=== PATIENT | male | born 1990 | race Caucasian/White ===

== ENCOUNTER 2016-04-24 06:50 | Emergency (ER) | payer OTHER, MEDICAID ==
[2016-04-24 07:39] LABS: HEMATOCRIT 37 % (39-53); MEAN CORPUSCULAR HGB CONC 37.4 gm/dl (32.0-36.0); MEAN CORPUSCULAR VOLUME 87 fL (80-100)
[2016-04-24 07:46] LABS: ALBUMIN 3.5 gm/dl (3.4-5.0); CALCIUM 8.6 mg/dl (8.5-10.1)
[2016-04-24 07:56] LABS: BASOPHILS % (MANUAL) 0 % (0-3); EOSINOPHILS % (MANUAL) 0 % (0-9); LYMPHOCYTES % (MANUAL) 9 % (10-50); NORMAL RBCS PRESENT
[2016-04-24 08:10] LABS: APPEARANCE,URINE Slightly Cloudy; BILIRUBIN,URINE 2+ (NEGATIVE); COLOR,URINE Dark yellow; GLUCOSE, URINE (UA) NEGATIVE (NEGATIVE); KETONES,URINE 3+ (NEGATIVE); LEUKOCYTE ESTERASE ,URINE NEGATIVE (NEGATIVE); NITRATE,URINE NEGATIVE (NEGATIVE); OCCULT BLOOD,URINE 2+ (NEG-TRACE); PH,URINE 5.5
[2016-04-24 08:29] VITALS: PULSE 107
[2016-04-24 08:38] LABS: ICTOTEST,URINE NEGATIVE (NEGATIVE); RBC,URINE 0-2 (0-3AV/HPF)
[2016-04-24 09:06] VITALS: BP 106/70; RESP 23; TEMP 99.8; O2SAT 96
== END 2016-04-24 08:55 | disposition home or self-care (01) | DRG 195 ==
LOC: ED 06:50
DX: J09.X2 Influenza due to identified novel influenza A virus with other respiratory manifestations (principal); R56.9 Unspecified convulsions
CPT/HCPCS: 36415; 80053; 81001; 85007; 85027; 87430; 87804; 99283; 99284

== ENCOUNTER 2017-01-10 21:04 | Emergency (ER) | payer OTHER, MEDICAID ==
[2017-01-10 21:17] VITALS: RESP 20; TEMP 98.7
[2017-01-10 21:28] VITALS: BP 132/96; PULSE 99; O2SAT 97
== END 2017-01-10 21:45 | disposition home or self-care (01) | DRG 101 ==
LOC: ED 21:04
DX: R56.9 Unspecified convulsions (principal); S01.111A Laceration without foreign body of right eyelid and periocular area, initial encounter; W19.XXXA Unspecified fall, initial encounter
CPT/HCPCS: 99283

== ENCOUNTER 2017-04-24 09:48 | Outpatient (CLI) | payer OTHER, MEDICAID ==
[2017-01-10 21:28] VITALS: O2SAT 97
== END 2017-04-24 09:49 | disposition home or self-care (01) | DRG 556 ==
LOC: CONVCARE 09:48
PROVIDERS: ATTEND Orthopaedic Surgery
DX: M79.645 Pain in left finger(s) (principal); S62.631A Displaced fracture of distal phalanx of left index finger, initial encounter for closed fracture
CPT/HCPCS: 73140

== ENCOUNTER 2017-05-08 08:39 | Outpatient (CLI) | payer OTHER, MEDICAID ==
[2017-01-10 21:28] VITALS: O2SAT 97
== END 2017-05-08 08:40 | disposition home or self-care (01) | DRG 561 ==
LOC: CONVCARE 08:39
PROVIDERS: ATTEND Orthopaedic Surgery
DX: S62.631D Displaced fracture of distal phalanx of left index finger, subsequent encounter for fracture with routine healing (principal)
CPT/HCPCS: 73140

== ENCOUNTER 2017-06-10 11:30 | Outpatient (CLI) | payer OTHER, MEDICAID ==
[2017-01-10 21:28] VITALS: O2SAT 97
== END 2017-06-10 11:31 | disposition home or self-care (01) | DRG 561 ==
LOC: CONVCARE 11:30
PROVIDERS: ATTEND Orthopaedic Surgery
DX: S62.631D Displaced fracture of distal phalanx of left index finger, subsequent encounter for fracture with routine healing (principal)
CPT/HCPCS: 73140